=== PATIENT | female | born 1955 | race African-American/Black ===

== ENCOUNTER → 2016-10-14 | Outpatient (CLI) | payer MEDICARE ==
[~2016-10-14] MED LIST: ALAVERT10 M1 PO; ALBUTEROL17 GM INH; AMITRIPTYLINE H25 MG PO; ASPIRIN81 M2 PO; ASPIRIN81 MG PO; BRIMONIDINE TAR10 ML OU; BRIMONIDINE TART5 ML OU; DICLOFENAC PO; FLEXERIL10 M1 PO; FLEXERIL10 MG PO; IBUPROFEN800 MG PO; LORTAB 5/500 TA1 TA1 PO; MEDROL4 MG/DOSE- PO; OXYCODON-ACETA1 EAC1 PO; PERCOCET5/325 PO; PREDNISOLONE 1% OD; SYMBICORT INH; TIMOPTIC 0.5% OP5 M1 OD; TIMOPTIC 0.5% OP5 M1 OU; TIMOPTIC 0.5% OP5 M2 OU
--- NOTE | ~2016-10-14 | MR113 ---
[facility] A Service of [facility] & [facility] RADIOLOGY TEXT RESULTS PATIENT: KIRTI KEVIN LOCATION: CMRI : 53 UNIT #: [id number] AGE: [address]: Alley Lay MD SEX: F ORDER DR: [id number] [facility] [address] [place], [place] [address] [id number] O MR#: [id number] Acc #: [id number] NAME: KIRTI KEVIN : 1955 SEX: F STUDY DATE/TIME: 10/14/2016 14:58 UNIT: [facility]RI ROOM: STUDY DESCRIPTION: MR Lumbar Wo Contrast Attending Physician: Alley Lay M.D. Ordering Physician: Alley aLy M.D. Primary Care Physician: Alley Lay M.D. MRI CENTER REPORT This report is preliminary unless electronic signature is present. EXAM MRI of the lumbar spine without contrast dated 10/14/2016. COMPARISON Plain films lumbar spine dated 09/20/2016. HISTORY Low back pain which extends to both legs with numbness and tingling. Patient fell at work 2 days ago. FINDINGS Multisequence, multiplanar imaging of the lumbar spine was obtained without contrast. There is superior endplate compression fracture of T12 vertebral body with 40-50% maximal vertebral body height loss and retropulsion of posterosuperior fragment into the canal causing rpuf-ib-bbujvqgd canal stenosis. Diffuse edema is noted within the T12 vertebral body extending into bilateral pedicles, suggestive of an acute fracture. It is worse when compared to the prior plain films from 09/20/2016. Conus terminates at L1. Signal of conus and cauda equina are within normal limits. Pre and paravertebral soft tissues demonstrate face encoding artifact in the liver. No significant abnormality. Within the sacrum there are increased T2-signal lesions on either side of midline, distal to the thecal sac. The larger 1 is in the right paramidline aspect measuring 0.8 x 1.3 mm and it is noted at the level of the S2 segment probably associated with right S2-S3 nerve root. Within the lumbar spine there is small protrusion at L1-2. Mild disc bulges are noted throughout the lumbar spine, worse at L4-5 with borderline size to mild canal stenosis. No neural foraminal narrowing. IMPRESSION 1. There is a superior endplate compression deformity of T12 with 40% to 50% maximal vertebral body height loss and retropulsion of fragments STS. [facility] A Service of [facility] & [facility] RADIOLOGY TEXT RESULTS PATIENT: KIRTI KEVIN LOCATION: [facility] : 53 UNIT #: [id number] AGE: [address]: Alley Lay MD SEX: F ORDER DR: into the canal causing bdwn-bi-yegczcxg canal stenosis. It is suggestive of an acute compression fracture and it is new when compared to the plain films from last month. 2. Mild disc disease is seen at multiple levels of the lumbar spine as described above. 3. At the level of S2 segment on both sides of the midline there are increased T2-signal lesions most suggestive of perineural cysts based on statistics. They are associated with S2 or S3 segments. Nerve sheath tumor is next in the differential consideration and it cannot be excluded without contrast. Based on statistics perineural cysts are favored. 4. Findings were discussed with Dr. Alley Lay at 05:05 p.m. on 10/14/2016. Dictated by... Sarah Arango M.D. THIS IS AN ELECTRONICALLY VERIFIED REPORT Sarah Arango M.D. at 10/17/2016 5:17 PM CPR/lyla TD: 10/15/2016 11:25 JOB #: [id number] MRI CENTER REPORT COPY
== END | disposition home or self-care (01) ==
LOC: CMRI 13:51
DX: M54.5 Low back pain (principal); G89.29 Other chronic pain; G95.20 Unspecified cord compression; M51.26 Other intervertebral disc displacement, lumbar region; M48.06 Spinal stenosis, lumbar region; M51.9 Unspecified thoracic, thoracolumbar and lumbosacral intervertebral disc disorder
CPT/HCPCS: 72148

== ENCOUNTER 2016-10-19 10:30 | Inpatient (IN) | payer MEDICARE ==
--- NOTE | ~2016-10-19 | HP ---
Unit #: [id number] #: [id number] Patient: KIRTI KNAPP [id number] [address] [place], [place] [address] [id number] I MR#: [id number] NAME: KIRTI KNAPP ROOM: 203 Age: 61 Sex: F Admission Date: 10/19/2016 : 1955 Attending Physician: Alley Lay M.D. Primary Care Physician: Alley Lay M.D. HISTORY AND PHYSICAL CHIEF COMPLAINT Intractable back pain. HISTORY OF PRESENT ILLNESS Ms. Kirti Knapp is a 61-year-old -[place] female with a history of asthma, glaucoma, back pain, tobacco abuse came because of the abdominal pain. Patient is our office patient. She was seen in the office with back pain with radiation to bilateral lower extremities which was gradually getting worse. Today, her pain is 9/10. The patient had MRI done which showed compression deformity of T12 with 40% to 50% maximal vertebral body height loss and fghb-gy-wnrhwtus canal stenosis. The patient is being admitted to med/surg unit for further workup and possible kyphoplasty. According to patient, pain is radiating down to the lower extremities. She has some tingling sensation, no numbness. She is able to ambulate. No other complaints beside occasional chest pain off and on. 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 Had a cardiac cath done. It was normal per patient. Echocardiogram was done in our hospital in 2013 which showed ejection fraction of 45% to 50% and mild anterior wall hypokinesis. The patient does not follow up with any rodding anode worker. PAST MEDICAL HISTORY 1. History of asthma. 2. Osteoarthritis. 3. Tobacco abuse. 4. Glaucoma. 5. Insomnia. HOME MEDICATIONS 1. Symbicort 160/4.5 two puffs daily. 2. Ventolin two puff inhaler four times a day p.r.n. 3. Brimonidine tartrate one drop twice a day. 4. Timoptic 5 mL each eye twice a day. 5. Amitriptyline 25 mg at bedtime. 6. Oxycodone 7.5/325 four times a day. 7. Flexeril 10 mg three times a day. SOCIAL HISTORY The patient is a smoker, has been smoking for some period of time. According to her, today was her last cigarette and she is not going to smoke anymore. No history of alcohol abuse or drug abuse. PAST SURGICAL HISTORY 1. History of partial hysterectomy. Unit #: [id number] #: [id number] Patient: KIRTI KNAPP 2. History of cataract surgery. ALLERGIES No known drug allergies. FAMILY HISTORY Not significant in immediate family. REVIEW OF SYSTEMS As per history of presenting illness. She has no history of appetite loss or weight loss. No history of nausea and vomiting. No history of constipation or diarrhea. The patient's BMI is 18, which has not changed much from 2016. PHYSICAL EXAMINATION HEENT: Head is normocephalic. Eye movements normal. No conjunctival congestion. NECK: Supple. Trachea is midline. No thyromegaly. No carotid bruit. CHEST: Fair air entry. No additional sounds. CARDIOVASCULAR: S1, S2 positive. Mild murmur is heard. ABDOMEN: Soft, no tenderness. EXTREMITIES: Negative edema. Pulses are palpable. There is a tenderness in the lower thoracic area and lumbar area. Straight leg test was deferred at this time because patient is complaining of pain. CENTRAL NERVOUS SYSTEM: The patient is awake, alert, oriented x3. No focal neurological deficit. DIAGNOSTIC STUDIES LABORATORY: Lab workup so far: CBC, CMP, cardiac enzymes, PT/INR are pending. IMAGING: MRI results are as above, compression fracture of T12. ASSESSMENT The patient is being admitted to med/surg unit at [facility]. 1. Intractable back pain, level of 9 on scale of 1-10. 2. Compression fracture of T12. 3. Ludj-hw-igndlowd spinal canal stenosis. 4. Bilateral lumbar radiculopathy. 5. Asthma. 6. History of myocardial infarction in 1988, on aspirin a day, was admitted in [facility]. Cardiac catheterization was done which was normal. Echocardiogram shows 45% to 50%. 7. Tobacco abuse. PLAN Plan is admit to med/surg. Interventional radiology will be consulted for possible kyphoplasty. The patient will be NPO until seen by interventional radiology. Dr. Figueroa will be consulted. CBC, CMP, cardiac enzymes, EKG, PT/INR will be done. Pain medications will be provided. Home medications have been reviewed and adjusted. Plan of care has been discussed with patient at length. She does verbalize understanding. Dictated by Unit #: [id number] #: [id number] Patient: KIRTI KNAPP M.D. KN/ch TD: 10/19/2016 11:33 JOB #: [id number] HISTORY AND PHYSICAL X Alley Lay MD X HISTORY AND PHYSICAL
--- NOTE | ~2016-10-19 | XA149 ---
[facility] A Service of [facility] & [facility] RADIOLOGY TEXT RESULTS PATIENT: KIRTI KEVIN LOCATION: C2A : 53 UNIT #: [id number] AGE: [address]: Alley Lay MD SEX: F ORDER DR: [id number] [facility]. [place], [place] [address] [id number] I MR#: [id number] Acc #: [id number] NAME: KIRTI KEVIN : 1955 SEX: F STUDY DATE/TIME: 10/20/2016 10:38 UNIT: C2A ROOM: 203 STUDY DESCRIPTION: XA Kyphoplasty Thoracic Attending Physician: Alley Lay M.D. Ordering Physician: Alley Lay M.D. Primary Care Physician: Alley Lay M.D. MEDICAL IMAGING REPORT This report is preliminary unless electronic signature is present PROCEDURE T12 kyphoplasty, 10/20/2016 INDICATION 61-year-old female with history of acute symptomatic T12 compression fracture refractory to medical management. Fluoro time was 12.6 minutes. Reference air kerma 631 mGy. Medications administered were IV Versed and Fentanyl utilized for conscious sedation. Conscious sedation time monitored by appropriately credentialed radiology staff. 1 gm of Cefazolin was administered for antibiotic prophylaxis. The risks, benefits, and alternatives of the procedure were discussed with the patient and informed consent discussed the patient and informed consent was obtained. In the procedure room a time-out was performed confirming correct patient and procedure. All elements of maximum sterile barrier technique utilized according to guidelines appropriate for the procedure. TECHNIQUE/FINDINGS The patient was placed in the prone position and skin overlying the lower thoracic/upper lumbar spine was prepped and draped in usual sterile fashion. 1% lidocaine utilized to anesthetize the skin and underlying subcutaneous tissues. Next, using a bipedicular approach, first a second 11-gauge access needle advanced into the right pedicle of both under fluoroscopic guidance. Next, through each access, drill bits were advanced through the vertebral body into the anterior third of the vertebral body. The drill bits were removed and next kyphoplasty balloons were advanced through each access and the balloons were inflated to create small cavities. The balloons were removed. Next, each cavity was filled under constant fluoroscopic guidance with polymethylmethacrylate cement. The cement was allowed to harden. Both of the access needles were then STS. [facility] A Service of [facility] RADIOLOGY TEXT RESULTS PATIENT: KIRTI KEVIN LOCATION: [facility] 203-01 : 53 UNIT #: [id number] AGE: [address]: Alley Lay MD SEX: F ORDER DR: removed. Spot images taken. This demonstrated a tiny amount of cement extravasation into the T11-T12 disc space but otherwise there is good cement distribution. Both of the incisions were cleaned and closed with Steri-Strips. The patient tolerated the procedure well without immediate complications. IMPRESSION Technically successful kyphoplasty of T12. Dictated by... Jose Ramon Llanes M.D. THIS IS AN ELECTRONICALLY VERIFIED REPORT Jose Ramon Llanes M.D. at 10/24/2016 8:37 AM NANCY/magda TD: 10/21/2016 03:53 JOB #: [id number] MEDICAL IMAGING REPORT COPY
--- NOTE | ~2016-10-19 | DS ---
Unit #: [id number] #: [id number] Patient: KIRTI KEVIN [id number] [facility]. [place], [place] [address] [id number] I MR#: [id number] NAME: KIRTI KEVIN ROOM: 203 Age: 61 Sex: F Admission Date: 10/19/2016 : 1955 Discharge Date: 10/21/2016 Attending Physician: Alley Lay M.D. Primary Care Physician: Alley Lay M.D. DISCHARGE SUMMARY FINAL DIAGNOSES 1. Thoracic 12 compression fracture with mild canal compromise at the thoracic 12 level status post kyphoplasty, which was performed on 10/20/[address] Jose Ramon Llanes. 2. Left anterior chest pain. 3. Asthma/chronic obstructive pulmonary disease. 4. Tobacco abuse. HOSPITAL COURSE T12 compression fracture with mild canal compromise at the T12 level status post kyphoplasty, which was performed on 10/20/[address] Jose Ramon Llanes. The patient was admitted to the hospital with intractable back pain. MRI of the back was done from outpatient, and it showed T12 compression fracture. The patient was admitted to the hospital and interventional radiology was consulted. The patient had kyphoplasty done, and she seems to have improved a lot. She still has some pain, but according to her, it is more than 70%. She will be discharged home to follow up as an outpatient. We may still need to refer her to spine center as an outpatient. Left anterior chest pain. The patient did have left anterior chest pain, which was very atypical. Troponin level was done, which was slightly elevated, which was nondiagnostic as per flat surfacer, Dr. Carrizales. The patient's echocardiogram from December 2013 showed ejection fraction of 45% to 50% and impaired left ventricular relaxation and mild mitral regurgitation. She had a cardiac catheterization done in 2007, which showed normal coronaries. Again, two-dimensional echocardiogram in July 2016 showed 60%. Lexiscan Cardiolite stress test was done on 07/14/16, which showed ejection fraction of 77%. No stress-induced ischemia. No new workup is needed at this time, as adenosine Cardiolite scan 3 months ago had shown no ischemia. If she has chest pain in the future to suggest ischemic heart disease, then would consider a cardiac catheterization, as per Dr. Carrizales. This information was given to the patient. The patient may need to follow up with Dr. Carrizales as an outpatient. Asthma/chronic obstructive pulmonary disease. The patient is stable from that aspect. Continue home medications. Tobacco abuse. Tobacco cessation counselling has been done, and she does verbalize understanding of that. CONSULTATIONS DONE DURING HOSPITALIZATION 1. Interventional radiologist. Unit #: [id number] #: [id number] Patient: KIRTI KEVIN 2. Dr. Carrizales. DIAGNOSTIC STUDIES LAB WORKUP ON DISCHARGE: Troponin is 0.06. WBC is 7.6, hemoglobin 11.8, hematocrit 36.7, platelet count 290. Sodium 142, potassium 4.2, chloride 112, BUN 13, creatinine 1. Liver enzymes are stable. Troponin on admission was 0.12, and on discharge 0.06. DISCHARGE PHYSICAL EXAMINATION VITAL SIGNS: Blood pressure 105/53, respiratory rate 16, pulse 67, temperature 97.8. RESPIRATORY: Chest has fair air entry. No additional sounds. CVS: S1, S2 positive. Regular rhythm. ABDOMEN: Soft. EXTREMITIES: Negative edema. GIS CONSULTANT: Awake, alert, oriented x3. No focal neurologic deficits. DISCHARGE PLAN The patient will be discharged home after seen by flat surfacer today. MEDICATIONS As per med/rec. FOLLOWUP Follow up with primary care provider in 1 week. DISCHARGE INSTRUCTIONS Tobacco cessation counselling done. Dictated by... Man Weller/blanca TD: 10/21/2016 09:27 JOB #: [id number] DISCHARGE SUMMARY X Alley Lay MD X DISCHARGE SUMMARY
--- NOTE | ~2016-10-19 | A ---
[facility] Nutrition Therapy DATE: 10/20/16 Patient: KIRTI KEVIN Physician: TRI Address: [address] [place] [address] Room/Bed: [address] [place] [address], Zip: [place] [address] Admit Date: 10/19/16 Date of : [birth year] Height: Weight: 107 48.98 NUTRITIONAL ASSESSMENT: REASON: low BMI 61 yo female admitted for intractable back pain PMH: asthma, osteoarthritis, tobacco use, glaucoma, insomnia Anthropometrics: HT: 5'4", WT: 48.2 kg (106#), BMI: 18.2, 88%IBW Labs: Cl- 112 Meds: Reviewed I/O & Bowel function: 1140/550, LBM 3/14 Skin Integrity: Scar (L thigh, abd) Estimated Nutrition Needs: Increased nutrient needs 2' pt underweight, wt loss noted Assessment: Chart reviewed, events noted. Pt reported ~10-15# wt loss over past year, stating UBW ~120-130#. Pt reported wt loss is d/t stress and poor appetite. RD encouraged small frequent meals throughout the day. RD discussed the importance of continuing to eat during times of stress to consume adequate calories and protein. RD encouraged Ensure BID, pt agreed. Pt had no diet questions at this time. RD to follow. Dx: Inadequate energy intake RT appetite loss and stress AEB 18.2 BMI, 88%IBW, 10-15# wt loss Intervention: 1. Ensure BID 2. Regular diet Monitoring, Evaluation and Goals: 1. PO intake; consume adequate nutrition w/no c/o n/v/d (PO>50%) 2. Weights; promote gradual wt gain, prevent further wt loss Recommendations: 1. Order Vanilla Ensure Enlive BID with meals. 2. Continue with current diet order. Encourage adequate calorie and protein intake. Pt is at a mild-moderate nutritional risk. RD will f/u per protocol. Respectfully, [facility] Nutrition Therapy DATE: 10/20/16 Patient: KIRTI KEVIN Physician: TRI Address: [address] [place] [address] Room/Bed: [address] [place] [address], Zip: [place] [address] Admit Date: 10/19/16 Date of : [birth year] Height: Weight: 107 48.98 ELAINE DICKINSON, [employer] Maker Zackery Cunha MS, RD, LD Food and Nutritional Services [facility] cc: client file
--- NOTE | ~2016-10-19 | EKG ---
PATIENT: KIRTI KEVIN UNIT #: [id number] Ventricular Rate: 58 BPM Atrial Rate: 58 BPM P-R Interval: 162 ms QRS Duration: 80 ms Q-T Interval: 420 ms QTC Calculation(Bezet): 412 ms P [place]: 46 degrees Calculated R [place]: 54 degrees Calculated T [place]: 64 degrees Diagnosis Line: Sinus bradycardia Diagnosis Line: Otherwise normal ECG Diagnosis Line: When compared with ECG of 20-OCT-2016 14:58, Diagnosis Line: (unconfirmed) Diagnosis Line: Nonspecific T wave abnormality no longer evident Diagnosis Line: in Anterior leads Diagnosis Line: Confirmed by LUPE BEY MD ([id number]) on 10/22/2016 Diagnosis Line: 7:46:10 AM INTERPRETING MD: MAIDA UNDERWOOD
--- NOTE | ~2016-10-19 | CO ---
Unit #: [id number] #: [id number] Patient: KIRTI KEVIN [id number] [address] [place], [place] [address] [id number] MR#: [id number] NAME: KIRTI KEVIN ROOM: 203 Age: 61 Sex: F Admission Date: 10/19/2016 : 1955 Attending Physician: Alley Lay M.D. Primary Care Physician: Alley Lay M.D. Consultation Date: 10/20/2016 CONSULTATION REPORT HISTORY OF PRESENT ILLNESS This is a 61-year-old female, who is admitted with a complaint of back pain. She has undergone kyphoplasty earlier today. During the course of her stay, she had a complaint of left anterior chest pain that did not radiate into her neck, arm, or jaw. She had no associated dyspnea, diaphoresis, nausea, or vomiting. There is no alleviating or aggravating factors. Her troponin was 0.12, but has trended downward to 0.07. EKG unremarkable. The patient had a cardiac catheterization in 2007, which shows angiographically normal coronaries. Lexiscan Cardiolite stress test in 07/2016 was normal. She denies a history of hypertension, hyperlipidemia, or diabetes, but she has risk factors that includes a nicotine abuse. PAST MEDICAL HISTORY 1. 2D echocardiogram on 12/24/2013 showed an ejection fraction equal to 45% to 50% with impaired left ventricular relaxation. There is mild mitral regurgitation and trace tricuspid regurgitation. 2. Cardiac catheterization in 2007 shows normal coronaries. 3. 2D echocardiogram on 07/14/2016 shows an ejection fraction of 60% with mild tricuspid regurgitation. Lexiscan Cardiolite stress test on 07/14/2016 shows an ejection fraction of 77% with no stress-induced ischemia. 4. Degenerative joint disease. 5. Asthma. 6. Osteoarthritis. 7. Glaucoma. 8. Nicotine abuse. PAST SURGICAL HISTORY Recent kyphoplasty. SOCIAL HISTORY The patient smokes a half a pack of cigarettes daily since age 13. There is no history of illicit drug or alcohol use. FAMILY HISTORY Negative for coronary artery disease. ALLERGIES No known drug allergies. HOME MEDICATIONS Symbicort 160/4.5 mcg 2 puffs daily, albuterol 2 puffs q.i.d. p.r.n., Unit #: [id number] #: [id number] Patient: KIRTI KEVIN brimonidine tartrate one drop OU b.i.d., Timoptic 1 drop OU b.i.d., amitriptyline 25 mg q.h.s., oxycodone/acetaminophen 7.5/325 q.i.d., and Flexeril 10 mg t.i.d. REVIEW OF SYSTEMS Ten-point review of system is negative except details stated in the HPI. She does complain of back pain. PHYSICAL EXAMINATION VITAL SIGNS: Blood pressure 108/66, heart rate 79, temperature 98.2. BMI 18. GENERAL: This is a thin framed 61-year-old female, who is in no acute distress. NEUROLOGIC: She is awake, alert, and oriented without focal weaknesses. NECK: Trachea is midline. No thyromegaly or lymphadenopathy. No jugular venous distention. HEART: S1 and S2. Heart sounds are normal. No murmurs. No rubs or clicks. Regular rate and rhythm. LUNGS: Clear to auscultation. There is no rales, rhonchi, or wheezing. ABDOMEN: Soft and nontender with bowel sounds are present. EXTREMITIES: Without leg edema. SKIN: Warm and dry. DIAGNOSTIC STUDIES LABORATORY RESULTS: Hemoglobin 11.8, hematocrit 36.7, platelet count 290, white count 7.6. Sodium 142, potassium 4.2, BUN 13, creatinine 1.0, glucose 90. Troponin 0.12 to 0.07. CARDIOVASCULAR STUDIES: EKG shows normal sinus rhythm with no acute ischemic changes. IMPRESSION 1. Back pain, status post kyphoplasty of the lumbar spine. 2. Nondiagnostic elevation of troponin, questionable etiology. 3. Chronic obstructive pulmonary disease. 4. Preserved left ventricular systolic function with an ejection fraction of 60%. PLAN 1. Cardiology was consulted for elevated troponin and chest pain. The troponin is nondiagnostic for significant ischemic heart disease. Chest pain is atypical. 2. No new workup is needed and Lexiscan Cardiolite stress test done 3 months ago showed no ischemia. 3. If the patient has chest pain to suggest ischemic heart disease, we will consider cardiac catheterization. 4. Okay to be discharged home in a.m. if EKG and troponin are negative. Thank you for allowing us to assist in this patient's care. Dictated by... Chriss Singer A.P.R.N. for Man Pak/emil TD: 10/25/2016 00:13 JOB #: [id number] Unit #: [id number] #: [id number] Patient: KIRTI KEVIN CONSULTATION REPORT Page 1 of 1 X Chriss Singer APRN X CONSULTATION REPORT
--- NOTE | ~2016-10-19 | EKG ---
PATIENT: KIRTI KEVIN UNIT #: [id number] Ventricular Rate: 73 BPM Atrial Rate: 73 BPM P-R Interval: 164 ms QRS Duration: 68 ms Q-T Interval: 384 ms QTC Calculation(Bezet): 423 ms P [place]: 61 degrees Calculated R [place]: 45 degrees Calculated T [place]: 52 degrees Diagnosis Line: Normal sinus rhythm Diagnosis Line: Normal ECG Diagnosis Line: When compared with ECG of 23-OCT-2015 19:35, Diagnosis Line: Premature ventricular complexes are no longer Diagnosis Line: Present Diagnosis Line: Confirmed by LUPE BEY MD ([id number]) on 10/19/2016 Diagnosis Line: 9:59:32 PM INTERPRETING MD: MAIDA UNDERWOOD
--- NOTE | ~2016-10-19 | EKG ---
PATIENT: KIRTI KEVIN UNIT #: [id number] Ventricular Rate: 63 BPM Atrial Rate: 63 BPM P-R Interval: 172 ms QRS Duration: 74 ms Q-T Interval: 418 ms QTC Calculation(Bezet): 427 ms P [place]: 33 degrees Calculated R [place]: 26 degrees Calculated T [place]: 43 degrees Diagnosis Line: Normal sinus rhythm Diagnosis Line: Nonspecific T wave abnormality Diagnosis Line: Borderline ECG Diagnosis Line: When compared with ECG of 19-OCT-2016 11:21, Diagnosis Line: Nonspecific T wave abnormality, worse in Anterior Diagnosis Line: leads Diagnosis Line: Confirmed by ALBIN DEAN MD ([id number]) on 10/21/2016 Diagnosis Line: 12:06:17 PM INTERPRETING MD: DIANNE UNDERWOOD
--- NOTE | ~2016-10-19 | XA231 ---
[facility] A Service of [facility] & [facility] RADIOLOGY TEXT RESULTS PATIENT: KIRTI KEVIN LOCATION: C2A : 53 UNIT #: [id number] AGE: [address]: Alley Lay MD SEX: F ORDER DR: [id number] [facility] [address] [place], [place] [address] [id number] I MR#: [id number] #: [id number] NAME: KIRTI KEVIN : 1955 SEX: F STUDY DATE/TIME: 10/19/2016 12:12 UNIT: C2A ROOM: [facility] STUDY DESCRIPTION: XA Consult Attending Physician: Alley Lay M.D. Ordering Physician: Alley Lay M.D. Primary Care Physician: Alley Lay M.D. MEDICAL IMAGING REPORT This report is preliminary unless electronic signature is present EXAM Kyphoplasty consultation, 10/19/2016 CLINICAL HISTORY This is a 61-year-old black female with severe back pain requiring hospitalization and narcotic administration. Kyphoplasty consultation requested. History of present illness includes progressive severe onset of back pain in August and September 2016. The patient reports a pain level of 9 out of 10. Pain was relatively abrupt but progressive in onset and significantly limits her activities of daily living. Past medical history is remarkable for a history of asthma requiring Ventolin and Symbicort and other medications as well as a prior history of catheterization, negative myocardial infarction. She does have mildly decreased ejection fraction of 45 to 50%. The patient also has a history of tobacco use, pack year history unknown, and a history of hysterectomy. She has no known drub allergies and no significant family history of osteoporosis. On physical examination she is a visibly agitated, uncomfortable older black female, unable to find a comfortable position during the exam. On direct palpation she is exquisitely tender to palpation over the T12 region posteriorly. She is otherwise awake and alert and moves both lower extremities with equal strength. Review of plain radiographs demonstrates osteopenia likely indicating osteoporosis. In September 2016 a T12 compression fracture was present with about 10% height loss, new since June 2016. On an MRI of October 14, 2016, a further progression fracture of T12 with about 50% height loss STS. [facility] A Service of [facility] & [facility] RADIOLOGY TEXT RESULTS PATIENT: KIRTI KEVIN LOCATION: A 203-01 : 51 UNIT #: [id number] AGE: [address]: Alley Lay MD SEX: F ORDER DR: and mild bony retropulsion and canal compromise was demonstrated showing clear progression since the plain radiographs in September. IMPRESSION 1. The patient is an excellent candidate for kyphoplasty with a recent progressive and exquisitely tender, painful T12 compression fracture. There is mild canal compromise but not sufficient to preclude a safe kyphoplasty. There is mild canal stenosis at the T12 level. 2. Underlying osteopenia demonstrated on radiographs may be related to chronic lung disease and steroid administration. 3. Results of the interview and recommendation for kyphoplasty with plan to proceed on October 20 were discussed with the patient who enthusiastically agrees with the plan. Dictated by... Chano Dennis M.D. THIS IS AN ELECTRONICALLY VERIFIED REPORT Chano Dennis M.D. at 10/20/2016 3:36 PM POLLY/magda TD: 10/20/2016 04:00 JOB #: [id number] MEDICAL IMAGING REPORT COPY
[~2016-10-19 10:30] MED LIST changes: -ASPIRIN81 M2 PO; -BRIMONIDINE TART5 ML OU; -FLEXERIL10 MG PO; -OXYCODON-ACETA1 EAC1 PO; -TIMOPTIC 0.5% OP5 M1 OU
[2016-10-19] MEDS ORDERED: SYMBICORT INH (10:40)
[2016-10-19] MEDS ORDERED: ALBUTEROL17 GM INH (10:41)
[2016-10-19] MEDS ORDERED: BRIMONIDINE TART5 ML OU (10:42)
[2016-10-19] MEDS ORDERED: OXYCODON-ACETA1 EAC1 PO (10:43)
[2016-10-19] MEDS ORDERED: TIMOPTIC 0.5% OP5 M1 OU (10:43)
[2016-10-19] MEDS ORDERED: AMITRIPTYLINE H25 MG PO (10:43)
[2016-10-19] MEDS ORDERED: FLEXERIL10 MG PO (10:44)
[2016-10-19 11:41] LABS: HEMATOCRIT 38.7 % (35.0-45.0); HEMOGLOBIN 12.6 gm/dL (12.0-16.0); MEAN CORPUSCULAR HEMOGLOBIN 30.5 PG (28-34); MEAN CORPUSCULAR HGB CONC 32.5 g/dL (30-36); RED BLOOD COUNT 4.12 X10e (3.90-5.30); RED CELL DISTRIBUTION WIDTH 13.5 % (11.0-15.5); WHITE BLOOD COUNT 8.6 X10e3 (4.0-10.5)
[2016-10-19 12:19] LABS: ALBUMIN SERUM 4.2 g/dL (3.5-5.0); ALKALINE PHOSPHATASE 71 U/L (32-92); ALT (SGPT) 10 U/L (10-40); AST (SGOT) 14 U/L (10-42); BILIRUBIN,TOTAL 0.8 mg/dL (0.2-2.0); BLOOD UREA NITROGEN 13 mg/dL (9-23); CALCIUM SERUM 8.9 mg/dL (8.4-10.2); CARBON DIOXIDE 27 mmol/L (22-31); CHLORIDE 112 mmol/L (100-111); CK TOTAL 79 IU/L (26-140); GLOM FILT RATE Estimated ABOVE60 mL/min (>60); GLUCOSE FASTING 90 mg/dL (70-110); POTASSIUM 4.2 mmol/L (3.5-5.1); PROTEIN TOTAL SERUM 6.5 g/dL (6.0-8.3); SODIUM 142 mmol/L (135-145)
[2016-10-19 12:37] LABS: %MB 1.3 % (0.0-4.0)
[2016-10-20 06:29] LABS: BASOPHIL# 0.1 X10e3 (0-0.3); BASOPHIL% 1.5 % (0-2.5); EOSINOPHIL# 0.4 X10e3 (0-0.7); EOSINOPHIL% 4.8 % (0.0-7.0); HEMATOCRIT 36.7 % (35.0-45.0); HEMOGLOBIN 11.8 gm/dL (12.0-16.0); LYMPHOCYTE# 4.2 X10e3 (1.0-3.5); LYMPHOCYTE% 55.8 % (17.0-45.0); MEAN CELL VOLUME 94.5 FL (83-96); MEAN CORPUSCULAR HEMOGLOBIN 30.3 PG (28-34); MEAN CORPUSCULAR HGB CONC 32.1 g/dL (30-36); MEAN PLATELET VOLUME 8.5 FL (6.5-11.5); MONOCYTE# 0.6 X10e3 (0-1.0); MONOCYTE% 7.3 % (3.0-12.0); NEUTROPHIL# 2.3 X10e3 (1.5-7.1); NEUTROPHIL% 30.6 % (40-75); PLATELET COUNT 290 X10e3 (140-420); RED BLOOD COUNT 3.88 X10e (3.90-5.30); RED CELL DISTRIBUTION WIDTH 13.3 % (11.0-15.5); WHITE BLOOD COUNT 7.6 X10e3 (4.0-10.5)
[2016-10-20 06:31] LABS: DIFF IND YES
[2016-10-20 06:39] LABS: PARTIAL THROMBOPLASTIN TIME 27.4 SECONDS (23.5-31.3); PROTHROMBIN TIME (PATIENT) 10.8 SECONDS (9.6-11.5)
[2016-10-20 07:07] LABS: HYPOCHROMIA SL; PLATELET ESTIMATE NORMAL (NORMAL)
[2016-10-21 06:40] LABS: MB 0.8 ng/ml
[2016-10-21] MEDS ORDERED: ASPIRIN81 M2 PO (10:21)
== END 2016-10-21 10:57 | disposition home or self-care (01) | DRG 517 ==
LOC: C2A 10:30
PROVIDERS: Internal Medicine Cardiovascular Disease; Physician Assistant Medical; Radiology Diagnostic Radiology
PROC: 0PS43ZZ Reposition Thoracic Vertebra, Percutaneous Approach (ICD-10-PCS; principal; 2016-10-20)
PROC: 0PU43JZ Supplement Thoracic Vertebra with Synthetic Substitute, Percutaneous Approach (ICD-10-PCS; 2016-10-20)
DX: M80.88XA Other osteoporosis with current pathological fracture, vertebra(e), initial encounter for fracture (principal); J44.9 Chronic obstructive pulmonary disease, unspecified; J45.909 Unspecified asthma, uncomplicated; F17.210 Nicotine dependence, cigarettes, uncomplicated; Z88.2 Allergy status to sulfonamides; M48.00 Spinal stenosis, site unspecified; M54.16 Radiculopathy, lumbar region; Z90.711 Acquired absence of uterus with remaining cervical stump
CPT/HCPCS: 76140; 80053; 82550; 82553; 84484; 85025; 85027; 85610; 85730; 93005; 94640; 94664; 94760; 97163; C1713; G8978-GP; G8979-GP; G8980-GP; J0690; J1170; J2250; J3010

== ENCOUNTER → 2016-11-09 | Outpatient (CLI) | payer MEDICARE ==
[~2016-11-09] MED LIST changes: +ASPIRIN81 M2 PO; +BRIMONIDINE TART5 ML OU; +FLEXERIL10 MG PO; +OXYCODON-ACETA1 EAC1 PO; +TIMOPTIC 0.5% OP5 M1 OU
--- NOTE | ~2016-11-09 | CT138 ---
[facility] A Service of [facility] & [facility] RADIOLOGY TEXT RESULTS PATIENT: KIRTI KEVIN LOCATION: [facility] : 53 UNIT #: [id number] AGE: [address]: HOA PÉREZ SEX: F ORDER DR: [id number] [facility] [address] [place], [place] [address] [id number] O MR#: [id number] Acc #: [id number] NAME: KIRTI KEVIN : 1955 SEX: F STUDY DATE/TIME: 11/09/2016 10:03 UNIT: [facility] ROOM: STUDY DESCRIPTION: CT Lung screening initial Attending Physician: Duy Bailey Referring Physician: Duy Bailey Ordering Physician: Duy Bailey Primary Care Physician: Alley Lay M.D. MEDICAL IMAGING REPORT This report is preliminary unless electronic signature is present EXAM CT chest without contrast. Lung cancer screening initial exam 11/09/2016 1003 hours HISTORY 61-year-old current smoker with 48 pack-year history of smoking. No current chest complaints. COMPARISON PE protocol chest CT 10/27/2015 TECHNIQUE Helical low-dose CT images were obtained from the thoracic inlet through the adrenal glands. No contrast was administered. Total exam DLP 122 mGy-cm. This CT exam was performed with one or more of the following radiation dose reduction techniques: automatic control, adjustment of mA and/or kV according to patient size, and iterative reconstruction. This exam was performed in a facility that meets the criteria for the LDCT screening program. Data regarding this exam was submitted to an approved registry. The order for this exam indicates that it came as a result of lung cancer screening counseling and shared decision - making visit that included all of the elements required of such a visit. The radiologist interpreting this exam meets the CMS criteria for the LDCT lung cancer screening program. FINDINGS Images through the thoracic inlet demonstrate no thyroid mass or supraclavicular adenopathy. Images through the chest demonstrate atherosclerotic changes in the aorta and coronary arteries. There is no cardiomegaly or pericardial fluid. The esophagus is normal. There is no pathologic adenopathy. STS. [facility] A Service of [facility] & [facility] RADIOLOGY TEXT RESULTS PATIENT: KIRTI KEVIN LOCATION: [facility] : 53 UNIT #: [id number] AGE: [address]: HOA PÉREZ SEX: F ORDER DR: The lungs demonstrate moderate centrilobular emphysema without blebs or bullae. There is stable linear scar and calcification in the lingular segment of the left upper lobe unchanged from 10/27/2015. There are no suspicious nodules or densities. No effusions. Limited views through the upper abdomen demonstrate a stable small cyst in the posterior segment right lobe of the liver. The adrenal glands are normal. IMPRESSION 1. Negative lung cancer screening exam. There is underlying emphysematous change without blebs or bullae. There is linear scar and a benign calcified granuloma in the lingular segment of the left upper lobe unchanged from CT chest 10/27/2015. 2. Not mentioned above is a compression fracture at T12 with kyphoplasty change new from CT chest 10/27/2015. 3. LungRADS category 1 negative. Annual low-dose screening CT recommended in 12 months per protocol. Dictated by... Ekta Parikh M.D. THIS IS AN ELECTRONICALLY VERIFIED REPORT Ekta Parikh M.D. at 11/09/2016 5:20 PM KATHRYN/aron TD: 11/09/2016 14:57 JOB #: [id number] MEDICAL IMAGING REPORT Page 1 of 1 COPY
== END | disposition home or self-care (01) ==
LOC: CCAT 09:46
DX: F17.210 Nicotine dependence, cigarettes, uncomplicated (principal); J98.4 Other disorders of lung; J84.10 Pulmonary fibrosis, unspecified; M48.54XD Collapsed vertebra, not elsewhere classified, thoracic region, subsequent encounter for fracture with routine healing; Z98.890 Other specified postprocedural states
CPT/HCPCS: G0297

== ENCOUNTER → 2017-04-11 | Outpatient (CLI) | payer MEDICARE ==
--- NOTE | ~2017-04-11 | MY29 ---
[facility] A Service of [facility] & [facility] / [facility] RADIOLOGY TEXT RESULTS PATIENT: KIRTI KEVIN LOCATION: [facility] : 53 UNIT #: [id number] AGE: [address]: HOA PÉREZ SEX: F ORDER DR: [id number] [facility] [address] [place], [place] [address] [id number] O MR#: [id number] Acc #: [id number] NAME: KIRTI KEVIN : 1955 SEX: F STUDY DATE/TIME: 04/11/2017 13:55 UNIT: [facility] ROOM: STUDY DESCRIPTION: MY GRISEL SCREENING W/ CAD BILAT Attending Physician: Duy Bailey Referring Physician: Duy Bailey Ordering Physician: Duy Bailey Primary Care Physician: Alley Lay M.D. MEDICAL IMAGING REPORT This report is preliminary unless electronic signature is present EXAM Digital screening mammogram, 04/11/2017, [facility]. HISTORY 61-year-old woman, no risk elevation. Previous left breast biopsy. Annual screen. COMPARISON Comparison mammograms date to 12/17/2007 with most recent 03/15/2016. TECHNIQUE Digital imaging of each breast was completed utilizing screening protocol. Review includes FDA-approved CAD device. FINDINGS Breast parenchyma is partially fatty replaced. Subareolar duct prominence is again noted in each breast and stable. There are scattered benign calcifications in each breast. Image-guided biopsy marker now replaces the small lobulated nodule upper outer quadrant left breast. I see no suspicious mass or suspicious microcalcifications and no architectural deformity. IMPRESSION Benign mammogram. Annual screening recommended. Patients over the age of 40 are entered into a reminder system with target due date for the next mammogram. A result letter will also be sent to the patient. BIRADS: 2 Benign finding. [facility] A Service of [facility] & [facility] / [facility] RADIOLOGY TEXT RESULTS PATIENT: KIRTI KEVIN LOCATION: [facility] : 53 UNIT #: [id number] AGE: [address]: HOA PÉREZ SEX: F ORDER DR: Dictated by... Epifanio Escobar M.D. THIS IS AN ELECTRONICALLY VERIFIED REPORT Epifanio Escobar M.D. at 04/12/2017 8:18 AM CHARITY/marc TD: 04/11/2017 21:27 JOB #: [id number] MEDICAL IMAGING REPORT Page 1 of 1 COPY
== END | disposition home or self-care (01) ==
LOC: CWCC 04-06 12:30
DX: Z12.31 Encounter for screening mammogram for malignant neoplasm of breast (principal); Z98.890 Other specified postprocedural states
CPT/HCPCS: G0202